=== PATIENT | male | born 1995 | race Caucasian/White ===

== ENCOUNTER 2024-04-26 10:07 | Emergency (ER) | payer SELFPAY ==
[~2024-04-26] VITALS: Ht 175.3 cm; Wt 111.0 kg
[2024-04-26 10:09] VITALS: O2SAT 99
[2024-04-26] MEDS ORDERED: AMOX1TAB16 MT (10:54)
[2024-04-26] MEDS: TETANUS, DIPHTHERIA, PERTUSSIS VAC/PF 0.5ML (>10YR OLD) IM ONE (11:33)
[2024-04-26 11:35] VITALS: BP 144/99; PULSE 92; RESP 18; TEMP 37.11408; O2SAT 99
== END 2024-04-26 11:57 | disposition home or self-care (01) ==
LOC: ER 10:07
DX: S70.312A Abrasion, left thigh, initial encounter (principal); Z98.890 Other specified postprocedural states; W54.0XXA Bitten by dog, initial encounter; Y93.89 Activity, other specified; Y92.89 Other specified places as the place of occurrence of the external cause; Y99.8 Other external cause status
CPT/HCPCS: 90471; 90715; 99283